=== PATIENT | male | born 1965 | race African-American/Black ===

== ENCOUNTER 2019-02-04 18:18 | Inpatient (IN) | payer OTHER, BC ==
[2019-02-04] MEDS ORDERED: CLONIDINE HCL 0.1 MG TABLET PO ONE (19:14)
--- NOTE | 2019-02-04 19:19 | ER Document Report ---
ED Medical Screen (RME) - General Chief Complaint: S/S of Possible Stroke Stated Complaint: LEFT SIDED NUMBNESS Time Seen by Provider: 02/04/19 19:04 Primary Care Provider: ELENA VALDIVIA [Primary Care Provider] - Follow up as needed - [facility] Notes: 02/04/19 19:14 Patient is a 54-year-old male with a history of hypertension, not currently on any medicines, who presents complaining of left-sided facial droop, slight slurring of speech, left-sided weakness that began when he woke up around 3 AM about 16 hours ago. He also noted numbness on the left side. Patient states that he did have one episode of nausea and vomiting at that time as well. Patient told his that he was not feeling well last night when he went to bed. states that she has noticed a slight flare that is continued throughout the day as well as the weakness. Patient states that when he went to work and when he was driving he was not able to keep his arm lifted up and was starting to fall over to the left side. No history of CVA, TIA, CAD, MD, PE, DVT, diabetes, cancer. Denies SOMMERS, fever, neck pain, URI, CP, SOB, Abd pain, dysuria, back pain, or rash. I have treated and performed a rapid initial assessment of this patient. A comprehensive ED assessment and evaluation of the patient, analysis of test results and completion of medical decision making process will be conducted by additional ED providers. PHYSICAL EXAMINATION: GENERAL: Well-appearing, well-nourished and in no acute distress. A&Ox4. Answers questions appropriately. HEAD: Atraumatic, normocephalic. Non-tender. EYES: Pupils equal round and reactive to light, extraocular movements intact, sclera anicteric, conjunctiva are normal. No nystagmus. vis jamil intact. ENT: EAC clear b/l. TM's intact b/l without erythema, fluid, or perforation. Nares patent and without discharge. oropharynx clear without exudates. No tonsilar hypertrophy or erythema. Moist mucous membranes. NECK: Normal range of motion, supple without lymphadenopathy. No rigidity/meningismus. No midline tenderness. LUNGS: Breath sounds clear to auscultation bilaterally and equal. No wheezes rales or rhonchi. HEART: Regular rate and rhythm without murmurs, rubs, gallops. ABDOMEN: Soft, nontender, nondistended abdomen. No guarding, no rebound. Normal bowel sounds present. No CVA tenderness bilaterally. Musculoskeletal: Ext's b/l: FROM to passive/active. Strength 5+/5 on the right and 4+/5 to the left side of the body. Extremities: No cyanosis, clubbing, or edema b/l. Peripheral pulses 2+. Capillary refill less than 2 seconds. NEUROLOGICAL: NIH 2 for mild slur and facial droop left side. Strength unequal Lt weaker than Rt. GCS 15. Cranial nerves grossly intact. Pronator drift negative. Heel/santillan, finger/nose wnl. PSYCH: Normal mood, normal affect. SKIN: Warm, Dry, normal turgor, no rashes or lesions noted. - Related Data Allergies/Adverse Reactions: No Known Allergies Allergy (Unverified 02/04/19 18:23) Past Medical History - Social History Chew tobacco use (# tins/day): No Frequency of alcohol use: None Drug Abuse: None - Past Medical History Cardiac Medical History: Reports: Hx Hypertension Renal/ Medical History: Denies: Hx Peritoneal Dialysis Physical Exam - Vital signs Vitals: Temp Pulse BP Pulse Ox 98.5 F 89 185/93 H 96 02/04/19 18:28 02/04/19 18:28 02/04/19 18:28 02/04/19 18:28 Course - Vital Signs Vital signs: Temp Pulse Resp BP Pulse Ox 98.5 F 89 185/93 H 96 02/04/19 18:28 02/04/19 18:28 02/04/19 18:28 02/04/19 18:28 Doctor's Discharge - Discharge Referrals: LOCALMD,NO [Primary Care Provider] - Follow up as needed
[2019-02-04 20:06] LABS: ABSOLUTE LYMPHOCYTES (AUTO) 1.9 10^3/uL (0.5-4.7); ABSOLUTE MONOCYTES (AUTO) 1.2 10^3/uL (0.1-1.4); ABSOLUTE NEUT (AUTO) 9.8 10^3/uL (1.7-8.2); BASOPHILS % (AUTO) 0.3 % (0-2); EOSINOPHILS % (AUTO) 0.4 % (0-6); HEMATOCRIT 45.9 % (37.9-51.0); HEMOGLOBIN 14.4 g/dL (13.5-17.0); LYMPHOCYTES % (AUTO) 14.9 % (13-45); MEAN CORPUSCULAR HEMOGLOBIN 23.4 pg (27.0-33.4); MEAN CORPUSCULAR HGB CONC 31.4 g/dL (32.0-36.0); MEAN CORPUSCULAR VOLUME 75 fl (80-97); MONOCYTES % (AUTO) 9.2 % (3-13); PLATELET COUNT 206 10^3/uL (150-450); RED BLOOD COUNT 6.15 10^6/uL (4.35-5.55); RED CELL DISTRIBUTION WIDTH 15.9 % (11.5-14.0); SEGMENTED NEUTROPHILS % (AUTO) 75.2 % (42-78); TOTAL CELLS COUNTED % (AUTO) 100 %
[2019-02-04 20:13] LABS: APPEARANCE,URINE SLIGHTLY-CLOUDY; BILIRUBIN,URINE NEGATIVE (NEGATIVE); GLUCOSE, URINE NEGATIVE (NEGATIVE); KETONES,URINE NEGATIVE (NEGATIVE); LEUKOCYTE ESTERASE,URINE NEGATIVE (NEGATIVE); NITRITE,URINE NEGATIVE (NEGATIVE); PROTEIN,URINE 30 mg/dL (NEGATIVE); URINE SPECIFIC GRAVITY 1.028; UROBILINOGEN,URINE NEGATIVE mg/dL (<2.0)
[2019-02-04 20:14] LABS: COLOR,URINE YELLOW
[2019-02-04 20:18] LABS: INTERNATIONAL RATION (INR) 1.03
[2019-02-04 20:19] LABS: URINE AMPHETAMINES SCREEN NEGATIVE; URINE BARBITURATES SCREEN NEGATIVE; URINE BENZODIAZEPINES SCREEN NEGATIVE; URINE COCAINE SCREEN NEGATIVE; URINE MARIJUANA (THC) SCREEN NEGATIVE; URINE METHADONE SCREEN NEGATIVE; URINE PHENCYCLIDINE SCREEN NEGATIVE
[2019-02-04 20:22] LABS: ALANINE AMINOTRANSFERASE 20 U/L (21-72); ALBUMIN 4.7 g/dL (3.5-5.0); ALKALINE PHOSPHATASE 62 U/L (38-126); ANION GAP 10 (5-19); ASPARTATE AMINO TRANSFERASE 29 U/L (17-59); BILIRUBIN,DIRECT 0.3 mg/dL (0.0-0.4); BILIRUBIN,TOTAL 0.4 mg/dL (0.2-1.3); BLOOD UREA NITROGEN 19 mg/dL (7-20); CARBON DIOXIDE 27 mmol/L (22-30); CHLORIDE 105 mmol/L (98-107); CHOLESTEROL 191.19 mg/dL (0-200); GLUCOSE 107 mg/dL (75-110); POTASSIUM 4.2 mmol/L (3.6-5.0); SODIUM 142.2 mmol/L (137-145); TOTAL PROTEIN 8.1 g/dL (6.3-8.2); TRIGLYCERIDES 61 mg/dL (<150)
[2019-02-04 20:32] LABS: DIRECT LDL 116 mg/dL (<100)
--- NOTE | 2019-02-04 21:10 | RADIOLOGY REPORT (SQ) ---
CT HEAD WITHOUT IV CONTRAST CLINICAL STATEMENT: Left side face droop/weakness x16+hrs This exam was performed according to our departmental dose-optimization program which includes automated exposure control, adjustment of the mA and/or kVp according to patient size and/or use of iterative reconstruction technique where applicable. Findings: No acute intracranial hemorrhage, mass effect or midline shift. No extra-axial fluid collections. Ventricles and subarachnoid spaces are preserved. Andre-white matter differentiation is preserved. Visualized paranasal sinuses and the mastoid air cells are clear. The skull is intact. IMPRESSION: No acute intracranial hemorrhage.
[2019-02-04] MEDS ORDERED: CLONIDINE HCL 0.2 MG TABLET ONE (22:24)
[2019-02-05] MEDS ORDERED: ASPIRIN 81 MG TABLET, CHEWABLE PO ONE (01:08)
--- NOTE | 2019-02-05 01:13 | ER Document Report ---
ED General - General Chief Complaint: S/S of Possible Stroke Stated Complaint: LEFT SIDED NUMBNESS Time Seen by Provider: 02/04/19 19:04 Notes: Patient is a 54-year-old male with a past medical history of essential hypertension who presents with complaints of left-sided weakness. Patient states that this actually started yesterday, noted prior to going to bed. States that when he woke up this morning at approximately 4 AM the symptoms were even worse. States that he went to work, eventually was encouraged to come to the emergency department by family due to the unrelenting nature of his symptoms. Patient denies ever having had similar symptoms in the past. Regards it is being constant, severe in nature. Nothing seems to improve or worsen his symptoms. Denies any associated headache, neck pain, chest pain or shortness of breath. Does not have a primary care physician - Related Data Allergies/Adverse Reactions: No Known Allergies Allergy (Unverified 02/04/19 18:23) Past Medical History - General Information source: Patient - Social History Smoking Status: Never Smoker Chew tobacco use (# tins/day): No Frequency of alcohol use: None Drug Abuse: None Lives with: Spouse/Significant other Family History: Reviewed & Not Pertinent Patient has suicidal ideation: No Patient has homicidal ideation: No - Past Medical History Cardiac Medical History: Reports: Hx Hypertension Renal/ Medical History: Denies: Hx Peritoneal Dialysis Review of Systems - Review of Systems Notes: Constitutional: Negative for fever. HENT: Negative for sore throat. Eyes: Negative for visual changes. Cardiovascular: Negative for chest pain. Respiratory: Negative for shortness of breath. Gastrointestinal: Negative for abdominal pain, vomiting or diarrhea. Genitourinary: Negative for dysuria. Musculoskeletal: Negative for back pain. Skin: Negative for rash. Neurological: Positive for left-sided weakness 10 point ROS negative except as marked above and in HPI. Physical Exam - Vital signs Vitals: Temp Pulse BP Pulse Ox 98.5 F 89 185/93 H 96 02/04/19 18:28 02/04/19 18:28 02/04/19 18:28 02/04/19 18:28 Interpretation: Hypertensive Notes: PHYSICAL EXAMINATION: GENERAL: Well-appearing, well-nourished and in no acute distress. HEAD: Atraumatic, normocephalic. EYES: Pupils equal round and reactive to light, extraocular movements intact, s clera anicteric, conjunctiva are normal. ENT: nares patent, oropharynx clear without exudates. Moist mucous membranes. NECK: Normal range of motion, supple without lymphadenopathy LUNGS: Breath sounds clear to auscultation bilaterally and equal. No wheezes rales or rhonchi. HEART: Regular rate and rhythm without murmurs ABDOMEN: Soft, nontender, normoactive bowel sounds. No guarding, no rebound. No masses appreciated. EXTREMITIES: Normal range of motion, no pitting or edema. No cyanosis. NEUROLOGICAL: Mild left facial droop with left nasolabial fold effacement. Tongue protrudes midline. Extraocular motions intact. Pupils are 2 mm and equally reactive. Mild dysarthria. slight dysarthria, 4-/5 both distally and proximally in the left upper and left lower extremity. 5 out of 5 strength distally and proximally in the right upper and lower extremity PSYCH: Normal mood, normal affect. SKIN: Warm, Dry, normal turgor, no rashes or lesions noted. Course - Re-evaluation Re-evalutation: 02/05/19 01:11 Patient presents with symptoms consistent with a right MCA distribution acute CVA although bribes well outside the window for TPA administration. Patient has focal deficits on exam including effacement of the left nasolabial fold, slight dysarthria 4-/5 both distally and proximally in the left upper and left lower extremity. Mental status is normal. The remainder of the neurologic exam is otherwise normal. Patient's labs unremarkable, CT head unremarkable. Patient was given a full dose of aspirin. Initial blood pressure noted to be markedly elevated although in triage patient was given 0.1 mg of oral clonidine. I have discussed this case with the admitting physician Dr. Muniz who is accepted the patient to [facility]. - Vital Signs Vital signs: Temp Pulse Resp BP Pulse Ox 98.7 F 60 16 141/83 H 96 02/04/19 21:47 02/05/19 00:30 02/05/19 02:31 02/05/19 02:31 02/05/19 00:31 - Laboratory Result Diagrams: 02/04/19 19:45 02/04/19 19:45 Laboratory results interpreted by me: 02/04/19 02/04/19 02/04/19 19:45 19:45 19:45 WBC 13.0 H RBC 6.15 H MCV 75 L MCH 23.4 L MCHC 31.4 L RDW 15.9 H Absolute Neutrophils 9.8 H ALT 20 L LDL Cholesterol Direct 116 H Urine Protein 30 H Urine Ascorbic Acid 20 H - Diagnostic Test Radiology reviewed: Image reviewed, Reports reviewed Radiology results interpreted by me: 02/05/19 01:12 CT head: No acute intercranial bleed or mass - EKG Interpretation by Me Additional EKG results interpreted by me: 02/05/19 01:12 Sinus rhythm, rate 54. No ST elevations or depressions. QTC is 425. Discharge - Discharge Clinical Impression: Acute embolic stroke, Left-sided weakness, Dysarthria Condition: Fair Disposition: ADMITTED INPATIENT Admitting Provider: Cristy (Hospitalist) Unit Admitted: [facility]
[2019-02-05] MEDS ORDERED: ONDANSETRON HCL INJ/PF 4 MG/2 ML SDV IV PRN (02:24)
[2019-02-05] MEDS ORDERED: DOCUSATE SODIUM 100 MG CAPSULE PO PRN (02:24)
[2019-02-05] MEDS ORDERED: TEMAZEPAM 15 MG CAPSULE PO PRN (02:24)
[2019-02-05] MEDS ORDERED: MAGNESIUM HYDROXIDE SUSP 30 ML UDCUP PO PRN (02:24)
[2019-02-05] MEDS ORDERED: ACETAMINOPHEN 325 MG TABLET PO PRN (02:24)
[2019-02-05] MEDS ORDERED: ACETAMINOPHEN 650 MG SUPP.RECT PR PRN (02:24)
[2019-02-05] MEDS ORDERED: TRAMADOL HCL 50 MG TABLET PO PRN (02:24)
[2019-02-05] MEDS ORDERED: HYDRALAZINE HCL INJ/PF 20 MG/1 ML SDV IV PRN (02:31)
--- NOTE | 2019-02-05 04:55 | PDOC H&P ---
History of Present Illness Admission Date/PCP: 02/05/19 01:50 No PCP Patient complains of: Left sided weakness History of Present Illness: ARON RODRIGUES is a 54 year old male who presented to the emergency room with a 1 day history of left-sided weakness. Patient admits that he noticed left-sided weakness present on the evening of 02/03/2019 and he went to bed with the weakness being continuously present. Upon waking in the morning of 02/04/2019, he felt that his weakness was worse but he did not come to the emergency room until the evening of 02/04/2019. He admits only minimal difficulty with speech but significant weakness of his left upper and lower extremities especially in his shoulder and upper arm as well as his hip and upper leg. He denies pain or paresthesias. He has not experienced prior similar episodes and has not identified any aggravating or ameliorating factors for his acute left-sided weakness. He admits having been told he had hypertension but he has never been treated. In the emergency room he was found to be hypertensive with a blood pressure 198/108 and his neurologic exam remained unchanged with significant left-sided weakness noted. Patient was subsequently admitted to the stroke protocol on [facility]. Past Medical History Cardiac Medical History: Reports: Hypertension Denies: Coronary Artery Disease Pulmonary Medical History: Denies: Asthma, Chronic Obstructive Pulmonary Disease (COPD) EENT Medical History: Denies: Cataracts, Ears - Hearing aids Neurological Medical History: Denies: Hemorrhagic CVA, Ischemic CVA, Seizures Endocrine Medical History: Reports: Obesity Denies: Diabetes Mellitus Type 1, Diabetes Mellitus Type 2 Renal/ Medical History: Denies: Chronic Kidney Disease, Nephrolithiasis Malignancy Medical History: Reports: None GI Medical History: Denies: Cirrhosis, Hepatitis Musculoskeltal Medical History: Denies: Arthritis, Gout Skin Medical History: Denies: Eczema, Psoriasis Psychiatric Medical History: Denies: Alcohol Dependency, Substance Abuse, Tobacco Dependency Traumatic Medical History: Reports: None Hematology: Denies: Anemia, Bleeding Tendencies Infectious Medical History: Reports: None Past Surgical History Past Surgical History: Reports: None Social History Information Source: Patient Lives with: Spouse/Significant other Smoking Status: Never Smoker Frequency of Alcohol Use: Rare Hx Recreational Drug Use: No Drugs: None Hx Prescription Drug Abuse: No - Advance Directive Resuscitation Status: Full Code Surrogate healthcare decision maker:: Sindhu Surekha Family History Family History: DM, Hypertension. denies: CAD, CVA, Malignancy Parental Family History Reviewed: Yes Children Family History Reviewed: No Sibling(s) Family History Reviewed.: Yes Medication/Allergy Home Medications: No Home Medications 02/05/19 Allergies/Adverse Reactions: lisinopril Adverse Reaction (Verified 02/05/19 04:39) cough Review of Systems Constitutional: ABSENT: chills, fever(s) Eyes: ABSENT: visual disturbances, other - Ocular pain Ears: ABSENT: hearing changes, other - Ear pain Nose, Mouth, and Throat: ABSENT: mouth pain, sore throat Cardiovascular: ABSENT: chest pain, dyspnea on exertion, edema, orthropnea, palpitations Respiratory: ABSENT: cough, dyspnea Gastrointestinal: ABSENT: abdominal pain, constipation, diarrhea, nausea, vomiting Genitourinary: ABSENT: dysuria, hematuria Musculoskeletal: PRESENT: as per HPI, muscle weakness - Left upper and lower extremity proximal musculature. ABSENT: back pain, joint swelling Integumentary: ABSENT: pruritus, rash Neurological: PRESENT: abnormal gait - Unable to ambulate due to left-sided weakness, abnormal speech - Mild dysarthria, focal weakness, weakness Psychiatric: ABSENT: anxiety, depression Endocrine: ABSENT: cold intolerance, heat intolerance Hematologic/Lymphatic: ABSENT: easy bleeding, easy bruising Physical Exam Vital Signs: Temp Pulse Resp BP Pulse Ox 98.7 F 60 13 140/87 H 96 02/04/19 21:47 02/05/19 00:30 02/05/19 01:01 02/05/19 01:01 02/05/19 00:31 Intake & Output 02/03/19 02/04/19 02/05/19 23:59 23:59 23:59 Weight 104.5 kg General appearance: PRESENT: no acute distress, cooperative, obese Head exam: PRESENT: atraumatic, normocephalic Eye exam: ABSENT: conjunctival injection, scleral icterus Ear exam: PRESENT: normal external ear exam. ABSENT: bleeding, drainage Mouth exam: PRESENT: dry mucosa, neck supple Neck exam: ABSENT: JVD, thyromegaly, tracheal deviation Respiratory exam: PRESENT: clear to auscultation bi, symmetrical, unlabored Cardiovascular exam: PRESENT: RRR. ABSENT: clicks, gallop, rubs Pulses: PRESENT: normal radial pulses Vascular exam: PRESENT: normal capillary refill. ABSENT: pallor GI/Abdominal exam: PRESENT: normal bowel sounds, soft Rectal exam: PRESENT: deferred Extremities exam: ABSENT: joint swelling, pedal edema Musculoskeletal exam: ABSENT: deformity, dislocation, tenderness Neurological exam: PRESENT: alert, oriented to person, oriented to place, oriented to time, oriented to situation, motor sensory deficit - Significant weakness of the proximal musculature of the left upper and lower extremities.. ABSENT: CN II-XII grossly intact - Left facial weakness consistent with the left central seventh facial nerve distribution Psychiatric exam: PRESENT: appropriate affect, normal mood Skin exam: PRESENT: dry, intact, warm. ABSENT: jaundice, rash, urticaria Results Laboratory Results: 02/04/19 19:45 02/04/19 19:45 02/04/19 02/04/19 02/04/19 19:45 19:45 19:45 WBC 13.0 H RBC 6.15 H Hgb 14.4 Hct 45.9 MCV 75 L MCH 23.4 L MCHC 31.4 L RDW 15.9 H Plt Count 206 Seg Neutrophils % 75.2 Lymphocytes % 14.9 Monocytes % 9.2 Eosinophils % 0.4 Basophils % 0.3 Absolute Neutrophils 9.8 H Absolute Lymphocytes 1.9 Absolute Monocytes 1.2 Absolute Eosinophils 0.0 Absolute Basophils 0.0 Sodium 142.2 Potassium 4.2 Chloride 105 Carbon Dioxide 27 Anion Gap 10 BUN 19 Creatinine 1.13 Est GFR ( Amer) > 60 Est GFR (Non-Af Amer) > 60 Glucose 107 Calcium 10.0 Total Bilirubin 0.4 AST 29 ALT 20 L Alkaline Phosphatase 62 Total Protein 8.1 Albumin 4.7 Triglycerides 61 Cholesterol 191.19 LDL Cholesterol Direct 116 H VLDL Cholesterol 12.0 HDL Cholesterol 54 Urine Color YELLOW Urine Appearance SLIGHTLY-CLOUDY Urine pH 5.0 Ur Specific [place] 1.028 Urine Protein 30 H Urine Glucose (UA) NEGATIVE Urine Ketones NEGATIVE Urine Blood NEGATIVE Urine Nitrite NEGATIVE Ur Leukocyte Esterase NEGATIVE Urine WBC (Auto) 5 Urine RBC (Auto) 0 02/04/19 02/04/19 19:45 23:04 Troponin I 0.015 0.015 Impressions: Head CT 02/04/19 19:13 IMPRESSION: No acute intracranial hemorrhage. Assessment and Plan - Diagnosis (1) Acute ischemic right middle cerebral artery (MCA) stroke Is this a current diagnosis for this admission?: Yes Plan: A MRI will be obtained as will be a carotid Doppler and an echocardiogram to evaluate the patient's stroke and etiology of the ischemic injury. (2) Hypertension Qualifiers: Hypertension type: essential hypertension Qualified Code(s): I10 - Essential (primary) hypertension Is this a current diagnosis for this admission?: Yes Plan: Patient's blood pressure will be controlled initially utilizing intravenous hydralazine or metoprolol but he will be started on an oral agent for treatment and adjustments to therapy will be made as appropriate. (3) Obesity (BMI 30.0-34.9) Is this a current diagnosis for this admission?: Yes Plan: Patient will be seen by dietitian for counseling and weight loss as part of his stroke management plan. (4) Hyperlipidemia, unspecified Qualifiers: Hyperlipidemia type: unspecified Qualified Code(s): E78.5 - Hyperlipidemia, unspecified Is this a current diagnosis for this admission?: Yes Plan: Patient will be started on statin therapy as part of his overall antihypertens eduard and stroke prevention treatment. - Time Time Spent with patient: 25-34 minutes Medications reviewed and adjusted accordingly: No - No medications Anticipated discharge: SNF, Acute Rehab - Inpatient Certification Based on my medical assessment, after consideration of the patient's comorbidities, presenting symptoms, or acuity I expect that the services needed warrant INPATIENT care.: Yes I certify that my determination is in accordance with my understanding of Medicare's requirements for reasonable and necessary INPATIENT services [42 CFR 412.3e].: Yes Medical Necessity: Need Close Monitoring Due to Risk of Patient Decompensation, Need For Continuous Telemetry Monitoring, Need for Neurological Checks, Risk of Complication if Not Cared For in Hospital
[2019-02-05] MEDS ORDERED: METOPROLOL TARTRATE PF/INJ 5 MG/5 ML SDV IV SCH (06:00)
[2019-02-05] MEDS ORDERED: METOPROLOL SUCCINATE 50 MG TAB.SR.24H PO SCH (10:00)
[2019-02-05] MEDS ORDERED: LISINOPRIL 10 MG TABLET PO SCH (10:00)
[2019-02-05] MEDS: METOPROLOL SUCCINATE 50 MG TAB.SR.24H PO SCH (10:20)
[2019-02-05] MEDS: FONDAPARINUX SODIUM INJ 2.5 MG/0.5 ML DISP.SYRIN SUBCUT SCH (10:20)
[2019-02-05] MEDS: ASPIRIN 81 MG TABLET, ENT COATED PO SCH (10:20)
[2019-02-05] MEDS: CLOPIDOGREL BISULFATE 75 MG TABLET PO SCH (10:20)
--- NOTE | 2019-02-05 12:51 | RADIOLOGY REPORT (SQ) ---
EXAM DESCRIPTION: MRI HEAD WITHOUT COMPLETED DATE/TIME: 02/05/2019 12:27 pm REASON FOR STUDY: cva COMPARISON: CT 02/04/2019 TECHNIQUE: Multiplanar imaging includes non-contrasted T1, T2, FLAIR, and diffusion with ADC map seq uences. Images stored on PACS. LIMITATIONS: None. FINDINGS: ANATOMY: No anomalies. Normal vascular flow voids. Pituitary fossa normal. CSF SPACES: Normal in size and contour. No hemorrhage. CEREBRUM: Minimal spotty white matter disease, right frontal. No hemorrhage or mass or shift or hydr ocephalus. POSTERIOR FOSSA: Focal mild signal in the right aspect of the jian. See diffusion imaging below. Mi nimal right mastoid fluid. DIFFUSION IMAGING: Restricted diffusion in the jian corresponds the above-noted signal abnormality an d is consistent with a recent lacunar infarct. ORBITS: No masses. Globes normal. PARANASAL SINUSES: Sinus disease is better demonstrated on recent CT. OTHER: No other significant finding. IMPRESSION: 1. Recent right pontine infarct. EVIDENCE OF ACUTE STROKE: YES. RIGHT VERTEBROBASILAR TECHNICAL DOCUMENTATION: JOB ID: [id number] [email or web address]- All Rights Reserved Reading location - IP/workstation name: [email or web address]
--- NOTE | 2019-02-05 13:19 | Progress Note ---
Provider Note Provider Note: Still mostly having trouble with his left hand. He does have some movement in it. We will continue to allow permissive hypertension through the day today. PRN medication available for extreme blood pressures. Continue aspirin and statin.
--- NOTE | 2019-02-05 19:50 | RADIOLOGY REPORT (SQ) ---
EXAM DESCRIPTION: CAROTID DOPPLER COMPLETED DATE/TIME: 02/05/2019 7:17 pm REASON FOR STUDY: cva COMPARISON: None. TECHNIQUE: Grayscale ultrasound, Doppler velocity and spectra, and color Doppler images acquired of the extra-cranial carotid and vertebral arteries. Images stored on PACS. LIMITATIONS: None. FINDINGS: RIGHT CAROTID CCA Velocities: Within normal limits. ICA Velocities Peak systolic 0.84 m/s. End diastolic 0.19 m/s. Proximal ICA/CCA peak systolic ratio 1.5. Spectra normal. No significant plaque. LEFT CAROTID CCA Velocities: Within normal limits. ICA Velocities Peak systolic 0.90 m/s. End diastolic 0.23 m/s. Proximal ICA/CCA peak systolic ratio 1.2. Spectra normal. No significant plaque. VERTEBRAL ARTERIES: Antegrade flow. IMPRESSION: NO HEMODYNAMICALLY SIGNIFICANT STENOSIS. COMMENT: Quality ID #[id number]: Velocity criteria are extrapolated from the diameter data as defined by t he Society of Radiologists in Ultrasound Consensus Conference. Radiology 2003: 229; 340-346. TECHNICAL DOCUMENTATION: JOB ID: [id number] [employer]- All Rights Reserved Reading location - IP/workstation name: [email or web address]
[2019-02-05] MEDS: ATORVASTATIN CALCIUM 40 MG TABLET PO SCH (21:03)
--- NOTE | 2019-02-05 23:42 | EKG REPORT ---
SEVERITY:- ABNORMAL ECG - SINUS RHYTHM LVH WITH SECONDARY REPOLARIZATION ABNORMALITY : Confirmed by: Tia Cohen MD 05-Feb-2019 23:41:58
[2019-02-06 04:27] LABS: ABSOLUTE EOSINOPHILS # (AUTO) 0.1 10^3/uL (0.0-0.6); ABSOLUTE LYMPHOCYTES (AUTO) 2.2 10^3/uL (0.5-4.7); ABSOLUTE MONOCYTES (AUTO) 0.8 10^3/uL (0.1-1.4); ABSOLUTE NEUT (AUTO) 4.7 10^3/uL (1.7-8.2); BASOPHILS % (AUTO) 0.3 % (0-2); EOSINOPHILS % (AUTO) 0.9 % (0-6); HEMATOCRIT 42.8 % (37.9-51.0); HEMOGLOBIN 13.6 g/dL (13.5-17.0); LYMPHOCYTES % (AUTO) 28.4 % (13-45); MEAN CORPUSCULAR HEMOGLOBIN 23.6 pg (27.0-33.4); MEAN CORPUSCULAR HGB CONC 31.7 g/dL (32.0-36.0); MEAN CORPUSCULAR VOLUME 75 fl (80-97); MONOCYTES % (AUTO) 10.7 % (3-13); PLATELET COUNT 191 10^3/uL (150-450); RED BLOOD COUNT 5.75 10^6/uL (4.35-5.55); SEGMENTED NEUTROPHILS % (AUTO) 59.7 % (42-78); TOTAL CELLS COUNTED % (AUTO) 100 %; WHITE BLOOD COUNT 7.9 10^3/uL (4.0-10.5)
[2019-02-06 04:45] LABS: ALANINE AMINOTRANSFERASE 18 U/L (21-72); ALBUMIN 3.8 g/dL (3.5-5.0); ALKALINE PHOSPHATASE 62 U/L (38-126); ANION GAP 11 (5-19); ASPARTATE AMINO TRANSFERASE 20 U/L (17-59); BILIRUBIN,DIRECT 0.2 mg/dL (0.0-0.4); BILIRUBIN,TOTAL 0.3 mg/dL (0.2-1.3); BLOOD UREA NITROGEN 20 mg/dL (7-20); CARBON DIOXIDE 26 mmol/L (22-30); CHLORIDE 105 mmol/L (98-107); GLUCOSE 109 mg/dL (75-110); POTASSIUM 4.1 mmol/L (3.6-5.0); TOTAL PROTEIN 6.9 g/dL (6.3-8.2)
[2019-02-06] MEDS: FONDAPARINUX SODIUM INJ 2.5 MG/0.5 ML DISP.SYRIN SUBCUT SCH (09:37)
[2019-02-06] MEDS: ASPIRIN 81 MG TABLET, ENT COATED PO SCH (09:37)
[2019-02-06] MEDS: CLOPIDOGREL BISULFATE 75 MG TABLET PO SCH (09:37)
[2019-02-06] MEDS: METOPROLOL SUCCINATE 50 MG TAB.SR.24H PO SCH (09:37)
--- NOTE | 2019-02-06 14:39 | PDOC PROGRESS REPORT ---
Subjective Progress Note for:: 02/06/19 Subjective:: No adverse events overnight. He says he feels like his left leg is doing a little bit better and he was able to walk farther today. He said he still having some trouble with his left hand. No headache or visual disturbances. No trouble chewing or swallowing. Reason For Visit: ACUTE CEREBROVASCULAR ACCIDENT Physical Exam Vital Signs: Temp Pulse Resp BP Pulse Ox 98.1 F 55 L 16 165/89 H 98 02/06/19 11:25 02/06/19 13:41 02/06/19 12:00 02/06/19 12:00 02/06/19 12:00 Intake & Output 02/05/19 02/06/19 02/07/19 06:59 06:59 06:59 Intake Total 2862 Output Total 4 Balance 2858 Weight 103.1 kg 102.9 kg General appearance: PRESENT: no acute distress, cooperative Respiratory exam: PRESENT: clear to auscultation bi, symmetrical, unlabored. ABSENT: accessory muscle use, chest wall tenderness, crackles, prolonged expiratory phas, rhonchi, tachypnea, wheezes Cardiovascular exam: PRESENT: RRR, +S1, +S2. ABSENT: diastolic murmur, systolic murmur Pulses: PRESENT: normal carotid pulses Vascular exam: PRESENT: normal capillary refill GI/Abdominal exam: PRESENT: normal bowel sounds, soft. ABSENT: distended, guarding, rebound, tenderness Extremities exam: ABSENT: clubbing, pedal edema Musculoskeletal exam: PRESENT: normal inspection. 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 When he walks with a walker he was stepped forward with his left foot and then bring his right foot even to his left foot instead of putting it forward in a normal stride Psychiatric exam: PRESENT: appropriate affect, normal mood Skin exam: PRESENT: dry, warm Results Laboratory Results: 02/06/19 03:47 02/06/19 03:47 02/06/19 02/06/19 03:47 03:47 WBC 7.9 RBC 5.75 H Hgb 13.6 Hct 42.8 MCV 75 L MCH 23.6 L MCHC 31.7 L RDW 16.0 H Plt Count 191 Seg Neutrophils % 59.7 Lymphocytes % 28.4 Monocytes % 10.7 Eosinophils % 0.9 Basophils % 0.3 Absolute Neutrophils 4.7 Absolute Lymphocytes 2.2 Absolute Monocytes 0.8 Absolute Eosinophils 0.1 Absolute Basophils 0.0 Sodium 142.0 Potassium 4.1 Chloride 105 Carbon Dioxide 26 Anion Gap 11 BUN 20 Creatinine 1.24 Est GFR ( Amer) > 60 Est GFR (Non-Af Amer) > 60 Glucose 109 Calcium 9.0 Total Bilirubin 0.3 AST 20 ALT 18 L Alkaline Phosphatase 62 Total Protein 6.9 Albumin 3.8 02/04/19 02/04/19 19:45 23:04 Troponin I 0.015 0.015 Impressions: Head CT 02/04/19 19:13 IMPRESSION: No acute intracranial hemorrhage. Head MRI 02/05/19 00:00 IMPRESSION: 1. Recent right pontine infarct. EVIDENCE OF ACUTE STROKE: YES. RIGHT VERTEBROBASILAR Carotid Doppler Study 02/05/19 02:27 IMPRESSION: NO HEMODYNAMICALLY SIGNIFICANT STENOSIS. Assessment and Plan - Diagnosis (1) Acute ischemic VBA brainstem stroke Qualifiers: Laterality: right Qualified Code(s): I63.211 - Cerebral infarction due to unspecified occlusion or stenosis of right vertebral artery; I63.22 - Cerebral infarction due to unspecified occlusion or stenosis of basilar artery Is this a current diagnosis for this admission?: Yes Plan: Acute right pontine lacunar infarct. On aspirin and statin. Slowly bring his blood pressure down. I cut back on his Toprol because his heart rate was in the upper 50s. Will likely start a second agent tomorrow. Did well enough for physical therapy they recommended outpatient physical therapy. (2) Hypertension Qualifiers: Hypertension type: essential hypertension Qualified Code(s): I10 - Essential (primary) hypertension Is this a current diagnosis for this admission?: Yes Plan: Currently on Toprol, will likely add a second agent - Time Time Spent with patient: 15-24 minutes
[2019-02-06] MEDS: ATORVASTATIN CALCIUM 40 MG TABLET PO SCH (21:03)
[2019-02-07] MEDS: FONDAPARINUX SODIUM INJ 2.5 MG/0.5 ML DISP.SYRIN SUBCUT SCH (08:40)
[2019-02-07] MEDS ORDERED: METOPROLOL SUCCINATE 25 MG TAB.SR.24H PO SCH (10:00)
[2019-02-07] MEDS ORDERED: NIFEDIPINE 30 MG TAB.ER.24 PO SCH (10:00)
[2019-02-07] MEDS: CLOPIDOGREL BISULFATE 75 MG TABLET PO SCH (10:10)
[2019-02-07] MEDS: ASPIRIN 81 MG TABLET, ENT COATED PO SCH (10:10)
[2019-02-07 11:36] VITALS: BP 156/96
--- NOTE | 2019-02-07 15:40 | PDOC DISCHARGE SUMMARY ---
General - Admit/Disc Date/PCP Admission Date/Primary Care Provider: 02/05/19 01:50 Discharge Date: 02/07/19 - Discharge Diagnosis (1) Acute ischemic VBA brainstem stroke Is this a current diagnosis for this admission?: Yes Summary: Stroke in the jian, he has some residual left leg weakness and some left hand weakness. Going home on 2 medications for blood pressure, statin, and aspirin. He will get outpatient physical therapy. (2) Hypertension Is this a current diagnosis for this admission?: Yes Summary: Provided prescriptions for Toprol and Procardia, because he said lisinopril gave him a cough. - Additional Information Resuscitation Status: Full Code Discharge Diet: Cardiac Discharge Activity: Supervised Activity Prescriptions: Atorvastatin Calcium [Lipitor 20 mg Tablet] 20 mg PO QHS #30 tablet Metoprolol Succinate [Toprol Xl 25 mg Tab.sr] 25 mg PO DAILY #30 tab.sr.24h Nifedipine [Procardia XL 30 mg Tablet] 30 mg PO DAILY #30 tab.er.24 Home Medications: Aspirin [Ecotrin 81 mg EC Tablet] 81 mg PO DAILY tabec 02/07/19 Atorvastatin Calcium [Lipitor 20 mg Tablet] 20 mg PO QHS #30 tablet 02/07/19 Metoprolol Succinate [Toprol Xl 25 mg Tab.sr] 25 mg PO DAILY #30 tab.sr.24h 02/07/19 Nifedipine [Procardia XL 30 mg Tablet] 30 mg PO DAILY #30 tab.er.24 02/07/19 History of Present Illness History of Present Illness: ARON RODRIGUES is a 54 year old male who presented to the emergency room with a 1 day history of left-sided weakness. Patient admits that he noticed left-sided weakness present on the evening of 02/03/2019 and he went to bed with the weakness being continuously present. Upon waking in the morning of 02/04/2019, he felt that his weakness was worse but he did not come to the emergency room until the evening of 02/04/2019. He admits only minimal difficulty with speech but significant weakness of his left upper and lower extremities especially in his shoulder and upper arm as well as his hip and upper leg. He denies pain or paresthesias. He has not experienced prior similar episodes and has not identified any aggravating or ameliorating factors for his acute left-sided weakness. He admits having been told he had hypertension but he has never been treated. In the emergency room he was found to be hypertensive with a blood pressure 198/108 and his neurologic exam remained unchanged with significant left-sided weakness noted. Patient was subsequently admitted to the [facility] on IM. Hospital Course Hospital Course: His symptoms did improve some after he was admitted and we got his blood pressure little bit better control and put him on aspirin and statin. He had some residual deficits in his left hand and his left leg. He was eating and drinking without difficulty. He was put on 2 different medications to control his blood pressure, metoprolol and nifedipine. He said lisinopril gave him a cough, and I told him that if he needed another medication for blood pressure in the future that an ARB would be a possibility. He did well enough for physical therapy that they recommended outpatient physical therapy and a rolling walker. His is can take some time off at home to help him with his recovery. His labs and examination were reassuring and he was discharged in good condition. Physical Exam Vital Signs: Temp Pulse Resp BP Pulse Ox 98.0 F 59 L 16 156/96 H 96 02/07/19 11:33 02/07/19 11:33 02/07/19 11:33 02/07/19 11:33 02/07/19 11:33 Intake & Output 02/06/19 02/07/19 02/08/19 06:59 06:59 06:59 Intake Total 2862 657 Output Total 4 Balance 2858 657 Weight 102.9 kg 103.2 kg General appearance: PRESENT: no acute distress, cooperative Respiratory exam: PRESENT: clear to auscultation bi, symmetrical, unlabored. ABSENT: accessory muscle use, chest wall tenderness, crackles, prolonged expiratory phas, rhonchi, tachypnea, wheezes Cardiovascular exam: PRESENT: RRR, +S1, +S2. ABSENT: diastolic murmur, systolic murmur Pulses: PRESENT: normal carotid pulses Vascular exam: PRESENT: normal capillary refill GI/Abdominal exam: PRESENT: normal bowel sounds, soft. ABSENT: distended, guarding, rebound, tenderness Extremities exam: ABSENT: clubbing, pedal edema Musculoskeletal exam: PRESENT: normal inspection. 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 When he walks with a walker he was stepped forward with his left foot and then bring his right foot even to his left foot instead of putting it forward in a normal stride Psychiatric exam: PRESENT: appropriate affect, normal mood Skin exam: PRESENT: dry, warm Results Laboratory Results: 02/06/19 03:47 02/06/19 03:47 02/04/19 02/04/19 19:45 23:04 Troponin I 0.015 0.015 Impressions: Head CT 02/04/19 19:13 IMPRESSION: No acute intracranial hemorrhage. Head MRI 02/05/19 00:00 IMPRESSION: 1. Recent right pontine infarct. EVIDENCE OF ACUTE STROKE: YES. RIGHT VERTEBROBASILAR Carotid Doppler Study 02/05/19 02:27 IMPRESSION: NO HEMODYNAMICALLY SIGNIFICANT STENOSIS. Qualifiers - * PATIENT BEING DISCHARGED WITH ANY OF THE FOLLOWING DIAGNOSIS: Stroke Stroke Pt being discharged on Anti-thrombolytic therapy?: Yes Stroke Pt being discharged on Anti-coagulation therapy?: No Reason(s) for not prescribing Anti-coagulation therapy:: Not indicated Stroke Pt being discharged on Statins?: Yes Acute Heart Failure Is this a Heart Failure Patient?: No Plan Time Spent: Greater than 30 Minutes
== END 2019-02-07 13:10 | disposition home or self-care (01) | DRG 65 ==
LOC: ER 18:18 → EH 02-05 01:50 → 3N 02-05 03:23
PROVIDERS: ADMIT Emergency Medicine; ATTEND Emergency Medicine
DX: I63.211 Cerebral infarction due to unspecified occlusion or stenosis of right vertebral artery (principal); G81.94 Hemiplegia, unspecified affecting left nondominant side; R47.9 Unspecified speech disturbances; I10 Essential (primary) hypertension; E78.5 Hyperlipidemia, unspecified; Z82.49 Family history of ischemic heart disease and other diseases of the circulatory system; Z83.3 Family history of diabetes mellitus; Z79.899 Other long term (current) drug therapy
CPT/HCPCS: 36415; 70450; 70551; 80053; 80061; 80307; 81001; 84484; 85025; 85610; 85730; 93005; 93010; 93306; 93880; 99285; J1652; J3490

== ENCOUNTER → 2019-03-08 | Outpatient (CLI) | payer OTHER, BC ==
--- NOTE | 2019-03-08 16:10 | RADIOLOGY REPORT (SQ) ---
EXAM DESCRIPTION: CHEST PA/LATERAL COMPLETED DATE/TIME: 03/08/2019 2:56 pm REASON FOR STUDY: COUGH COMPARISON: None. EXAM PARAMETERS: NUMBER OF VIEWS: two views TECHNIQUE: Digital Frontal and Lateral radiographic views of the chest acquired. RADIATION DOSE: NA LIMITATIONS: none FINDINGS: LUNGS AND PLEURA: No opacities, masses or pneumothorax. No pleural effusion. MEDIASTINUM AND HILAR STRUCTURES: No masses or contour abnormalities. HEART AND VASCULAR STRUCTURES: Heart normal size. No evidence for failure. BONES: No acute findings. HARDWARE: None in the chest. OTHER: No other significant finding. IMPRESSION: NO SIGNIFICANT RADIOGRAPHIC FINDING IN THE CHEST. TECHNICAL DOCUMENTATION: JOB ID: [id number] [employer]- All Rights Reserved Reading location - IP/workstation name: [email or web address]
== END ==
LOC: OD 14:29
PROVIDERS: ATTEND Internal Medicine
DX: R05 Cough (principal)
CPT/HCPCS: 71046

== ENCOUNTER → 2019-10-15 | Outpatient (CLI) | payer BC, OTHER ==
--- NOTE | 2019-10-16 13:36 | RADIOLOGY REPORT (SQ) ---
EXAM DESCRIPTION: MRI RT LOWER JOINT WITHOUT COMPLETED DATE/TIME: 10/15/2019 10:51 am REASON FOR STUDY: M25.561 RIGHT KNEE PAIN M25.561 PAIN IN RIGHT KNEE COMPARISON: None. TECHNIQUE: Rightknee images acquired and stored on PACS. Multiplanar images include fat sensitive s equences as T1, water sensitive sequences as FST2 or STIR, cartilage sensitive sequences as FSPD, and gradient echo sequences. LIMITATIONS: Body habitus. FINDINGS: JOINT AND BURSAE: Small effusion. BONE CORTEX AND MARROW: No alteration of signal to suggest marrow replacement. No worrisome bone lesi ons. No occult fracture. ACL: Intact. No degeneration or ganglion cyst. PCL: Intact. MCL: Intact. No periligamentous edema or fluid. LCL: Intact. No periligamentous edema or fluid. MEDIAL MENISCUS: Attenuated. Medial extrusion. No acute tear. LATERAL MENISCUS: No tears. No abnormal signal. MEDIAL COMPARTMENT: Advanced osteoarthritis. 1 cm focus of subchondral cyst formation articular surf [place] femoral condyle. LATERAL COMPARTMENT: Advanced osteoarthritis. Subchondral edema anterolateral femoral condyle. PATELLA: Moderate osteoarthritis. Intact retinaculum. EXTENSOR MECHANISM: Mild signal alteration in the patellar tendon. SOFT TISSUES: Adjacent muscles and subcutaneous tissues normal. Normal flow void in popliteal artery and vein. OTHER: No other significant finding. IMPRESSION: 1. 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 Loose bodies . 2. Small joint effusion. 3. Chronic degenerative changes in the medial meniscus. TECHNICAL DOCUMENTATION: JOB ID: [id number]- All Rights Reserved Reading location - IP/workstation name: [email or web address]
== END ==
LOC: RAD 10:09
PROVIDERS: ATTEND Internal Medicine
DX: M17.11 Unilateral primary osteoarthritis, right knee (principal); M25.561 Pain in right knee; M23.41 Loose body in knee, right knee; M25.461 Effusion, right knee